=== PATIENT | female | born 1935 | race Asian ===

== ENCOUNTER 2016-06-07 08:07 | Inpatient (IN) | payer OTHER, MEDICAID ==
[2016-06-07] MEDS ORDERED: NS 1,000 ML IV ONE (08:32)
[2016-06-07 08:42] LABS: COLOR PALE YELLOW; LEUKOCYTE ESTERASE,URINE TRACE (NEGATIVE); NITRITE,URINE NEGATIVE (NEGATIVE)
--- NOTE | 2016-06-07 08:46 | CPEKG ---
Heart Rate: 86 RR Interval: 698 P-R Interval: 168 QRSD Interval: 74 QT Interval: 368 QTC Interval: 440 P Dudley: 31 QRS Dudley: 27 T Wave Dudley: -3 EKG Severity - ABNORMAL ECG - EKG Impression: SINUS RHYTHM EKG Impression: PROBABLE POSTERIOR INFARCT EKG Impression: BORDERLINE T ABNORMALITIES, INFERIOR LEADS Electronically Signed By: Alexandra Abebe 07-Jun-2016 15:18:17
[2016-06-07 08:50] LABS: ABSOLUTE IMMATURE GRANULOCYTES 0.08 10^3/uL (0.00-0.10); ADD DIFF? NO; ADD MORPH? NO; ADD SCAN? NO; ATYPICAL LYMPHOCYTE FLAG 10 (0-99); FRAGMENT RBC FLAG 0 (0-99); HEMATOCRIT 40.4 % (38.0-47.0); HEMOGLOBIN 13.8 g/dL (12.6-16.3); LEFT SHIFT FLG 10 (0-99); LIPEMIA HEMOLYSIS FLAG 90 (0-99); MEAN CELL HEMOGLOBIN 30.9 pg (27.9-34.1); MEAN CELL HEMOGLOBIN CONCENTR. 34.2 g/dL (32.4-36.7); MEAN CELL VOLUME 90.4 fL (81.5-99.8); MEAN PLATELET VOLUME 9.6 fL (8.7-11.7); PLATELET CLUMPS FLAG 0 (0-99); PLATELET COUNT 159 10^3/uL (150-400); RED BLOOD CELL COUNT 4.47 10^6/uL (4.18-5.33); RED CELL DISTRIBUTION WIDTH 11.8 % (11.5-15.2)
[2016-06-07 09:05] LABS: ANION GAP 14 mEq/L (8-16); CALCIUM 9.6 mg/dL (8.5-10.4); CARBON DIOXIDE 21 mEq/l (22-31); CHLORIDE 105 mEq/L (97-110); CREATININE 0.9 mg/dL (0.6-1.0); GLOMERULAR FILTRATION RATE > 60; GLUCOSE 125 mg/dL (70-100); POTASSIUM 4.1 mEq/L (3.5-5.2); SODIUM 140 mEq/L (134-144)
--- NOTE | 2016-06-07 09:19 | EDPHY ---
H & P Stated Complaint: body aches, h/a, vomit, cough since yesterday Time Seen by Provider: 06/07/16 08:45 HPI/ROS: CHIEF COMPLAINT: Myalgias, URI symptoms. HISTORY OF PRESENT ILLNESS: The patient is a Tibetan-speaking 80 y/o female arriving with her son complaining of cough and myalgias onset yesterday morning. She complains of associated cough, "sinus" headache, rhinorrhea, and sore throat. She has used Theraflu and Tylenol with minimal symptom improvement. She had 3 episodes of vomiting through the night. Her son reports she also seems somewhat confused as she did not remember calling him this morning. She denies fever, abdominal pain, shortness of breath, or diarrhea. She did receive a flu vaccination this year and is normally healthy. Her son translated for me. REVIEW OF SYSTEMS: Constitutional: No fever, no chills Eyes: No visual changes ENT: see HPI Respiratory: see HPI Cardiac: No chest pain Gastrointestinal: see HPI Genitourinary: No hematuria, no dysuria Musculoskeletal: No leg pain or swelling Skin: No rash Neurological: See HPI Psychiatric: No depression Source: Patient, Family - Personal History Current Tetanus/Diphtheria Vaccine: Unsure Current Tetanus Diphtheria and Acellular Pertussis (TDAP): Unsure - Medical/Surgical History PMH: PMH includes: 1. Hearing aid 2. "achy joints" 3. GERD PCP: Dr. Rosendo Early Asthma: No Hx Chronic Respiratory Disease: No Hx Diabetes: No Hx Cardiac Disease: No Hx Renal Disease: No Hx Cirrhosis: No Hx Alcoholism: No Hx HIV/AIDS: No Hx Splenectomy or Spleen Trauma: No Other PMH: EYE LID SURGERY, CATARACT SURGERY. generally healthy - Social History Smoking Status: Never smoked Additional Social History: Speaks Tibetan. Lives with son and daughter. - Physical Exam Exam: General Appearance: Alert, no distress, non-toxic appearing Eyes: Pupils equal and round, no conjunctival pallor or injection ENT, Mouth: Mucous membranes moist. No pharyngeal erythema. Neck: Normal inspection Respiratory: Lungs are clear to auscultation Cardiovascular: Regular rate and rhythm Gastrointestinal: Abdomen is soft and non- tender Neurological: A&O, nonfocal, normal gait Skin: Warm and dry, no rash Extremities: Nontender, no pedal edema Psychiatric: Mood and affect normal Constitutional: Initial Vital Signs Temperature (C) 36.7 C 06/07/16 08:15 Heart Rate 97 06/07/16 08:15 Respiratory Rate 16 06/07/16 08:15 Blood Pressure 162/96 H 06/07/16 08:15 O2 Sat (%) 98 06/07/16 08:15 O2 Delivery Mode Nasal Cannula O2 (L/minute) 2 Allergies/Adverse Reactions: No Known Allergies Allergy (Unverified 04/30/13 01:51) Home Medications: Medication Instructions Recorded Acetaminophen [Tylenol 325mg (*)] 650 mg PO Q6 PRN 06/07/16 Calcium [HI-VALERIA] 500 mg PO DAILY 06/07/16 Omeprazole 20 mg PO DAILY 06/07/16 Ondansetron Odt [Zofran Odt 4 mg 4 mg PO Q4 PRN #6 tab 06/07/16 (*)] levOFLOXACIN [levAQUIN (RX)] 750 mg PO DAILY #9 tab 06/07/16 Medical Decision Making ED Course/Re-evaluation: This is a normally healthy Tibetan 80 y/o female who presents today with myalgias and general URI symptoms onset yesterday and vomiting early this morning. OTC medications have not improved her symptoms. On exam, she is well- appearing without evidence of dehydration, has no pharyngeal erythema, and her breath sounds are clear. IV established. Labs drawn including CBC, CHEM. UA ordered. 4mg IV Zofran and 1L IV NS administered. Flu swab ordered. Will attempt a PO challenge as she is currently not nauseated. 650mg PO Tylenol administered for pain. Plan for chest x-ray to rule out infiltrate. Patient placed on surveillance system monitor. The 12 lead EKG was interpreted by myself. EKG shows sinus rhythm rate 86 with borderline T abnormalities in inferior leads. See hard copy and/or "tracemaster " electronic copy for interpretation. Study: Chest x-ray Indication: Cough Results: Chest x-ray was obtained. The results of the study are: Indistinct opacity overlying the anterior aspect of the lower thoracic spine, which could be related to pneumonia or mass. Recommend radiographic follow-up to resolution. The study was read by Dr. Giles. I viewed the images myself on the PACS system. 0950: Reassessed patient and discussed work up. Her EKG is unremarkable as is her blood work. Her urine indicates a possible UTI (vs contamination), though she has no urinary symptoms; her urine has been sent for culture. Her chest x- ray shows a retrocardiac infiltrate c/w pneumonia. She will be discharged on Levaquin with her first dose here to treat possible pneumonia as well as a possible UTI and given a script for Zofran to use PRN. I've recommended following up with her PCP on Thursday. Her son translated this interaction for me and I answered all the patient's questions. Return precautions given. 1055: As RN was discharging patient, her SpO2 dropped to 87% while standing. She will need to be admitted for pneumonia and hypoxemia instead of discharge home. Bld cx's drawn, lactate normal. Discussed case with hospitalist service. Dr. Amaya accepts admission. Differential Diagnosis: Differential diagnosis includes UTI, pyelonephritis, cholecystitis, influenza, cellulitis, pneumonia. - Data Points Laboratory Results: Laboratory Results 06/07/16 08:38 06/07/16 08:38 06/07/16 06/07/16 06/07/16 08:38 08:38 08:38 WBC 7.95 10^3/uL 10^3/uL (3.80-9.50) RBC 4.47 10^6/uL 10^6/uL (4.18-5.33) Hgb 13.8 g/dL g/dL (12.6-16.3) Hct 40.4 % % (38.0-47.0) MCV 90.4 fL fL (81.5-99.8) MCH 30.9 pg pg (27.9-34.1) MCHC 34.2 g/dL g/dL (32.4-36.7) RDW 11.8 % % (11.5-15.2) Plt Count 159 10^3/uL 10^3/uL (150-400) MPV 9.6 fL fL (8.7-11.7) Neut % (Auto) 76.1 % H % (39.3-74.2) Lymph % (Auto) 12.2 % L % (15.0-45.0) [place] % (Auto) 9.1 % % (4.5-13.0) Eos % (Auto) 1.0 % % (0.6-7.6) Baso % (Auto) 0.6 % % (0.3-1.7) Nucleat RBC Rel Count 0.0 % % (0.0-0.2) Absolute Neuts (auto) 6.05 10^3/uL 10^3/uL (1.70-6.50) Absolute Lymphs (auto) 0.97 10^3/uL L 10^3/uL (1.00-3.00) Absolute Monos (auto) 0.72 10^3/uL 10^3/uL (0.30-0.80) Absolute Eos (auto) 0.08 10^3/uL 10^3/uL (0.03-0.40) Absolute Basos (auto) 0.05 10^3/uL 10^3/uL (0.02-0.10) Absolute Nucleated RBC 0.00 10^3/uL 10^3/uL (0-0.01) Immature Gran % 1.0 % % (0.0-1.1) Immature Gran # 0.08 10^3/uL 10^3/uL (0.00-0.10) Sodium 140 mEq/L mEq/L (134-144) Potassium 4.1 mEq/L mEq/L (3.5-5.2) Chloride 105 mEq/L mEq/L (97-110) Carbon Dioxide 21 mEq/l L mEq/l (22-31) Anion Gap 14 mEq/L mEq/L (8-16) BUN 14 mg/dL mg/dL (7-23) Creatinine 0.9 mg/dL mg/dL (0.6-1.0) Estimated GFR > 60 Glucose 125 mg/dL H mg/dL (70-100) Calcium 9.6 mg/dL mg/dL (8.5-10.4) Urine Color Urine Appearance Urine pH Ur Specific [place] Urine Protein Urine Ketones Urine Blood Urine Nitrate Urine Bilirubin Urine Urobilinogen Ur Leukocyte Esterase Urine RBC Urine WBC Ur Epithelial Cells Ur Culture Indicated? Urine Glucose Influenza Typ A,B (DFA) NEGATIVE FOR FLU (NEGATIVE) 06/07/16 08:29 WBC RBC Hgb Hct MCV MCH MCHC RDW Plt Count MPV Neut % (Auto) Lymph % (Auto) [place] % (Auto) Eos % (Auto) Baso % (Auto) Nucleat RBC Rel Count Absolute Neuts (auto) Absolute Lymphs (auto) Absolute Monos (auto) Absolute Eos (auto) Absolute Basos (auto) Absolute Nucleated RBC Immature Gran % Immature Gran # Sodium Potassium Chloride Carbon Dioxide Anion Gap BUN Creatinine Estimated GFR Glucose Calcium Urine Color PALE YELLOW Urine Appearance CLEAR Urine pH 7.0 (5.0-7.5) Ur Specific [place] 1.011 (1.002-1.030) Urine Protein NEGATIVE (NEGATIVE) Urine Ketones NEGATIVE (NEGATIVE) Urine Blood 2+ H (NEGATIVE) Urine Nitrate NEGATIVE (NEGATIVE) Urine Bilirubin NEGATIVE (NEGATIVE) Urine Urobilinogen NEGATIVE EU EU (0.2-1.0) Ur Leukocyte Esterase TRACE H (NEGATIVE) Urine RBC 5-10 /hpf H /hpf (0-3) Urine WBC 3-5 /hpf H /hpf (0-3) Ur Epithelial Cells TRACE /lpf /lpf (NONE-1+) Ur Culture Indicated? INDICATED H (NI) Urine Glucose NEGATIVE (NEGATIVE) Influenza Typ A,B (DFA) Medications Given: Discontinued Medications Acetaminophen (Tylenol) 650 mg PO EDNOW ONE Stop: 06/07/16 09:21 Last Admin: 06/07/16 09:41 Dose: 650 mg Sodium Chloride (Ns) 1,000 mls @ 0 mls/hr IV ONCE ONE PRN Reason: Wide Open Stop: 06/07/16 08:33 Last Admin: 06/07/16 08:40 Dose: 1,000 mls Levofloxacin (Levaquin) 750 mg PO EDNOW ONE PRN Reason: Protocol Stop: 06/07/16 09:51 Last Admin: 06/07/16 09:59 Dose: 750 mg Ondansetron HCl (Zofran) 4 mg IVP EDNOW ONE Stop: 06/07/16 09:21 Last Admin: 06/07/16 09:41 Dose: 4 mg Departure - Departure Disposition: [facility] Acute Clinical Impression: Hypoxemia Pneumonia Qualifiers: Pneumonia type: due to unspecified organism Laterality: right Lung location: unspecified part of lung Qualified Code(s): J18.9 - Pneumonia, unspecified organism Condition: Good Report Scribed for: Alexandra Abebe Report Scribed by: Laurie Patterson Date of Report: 06/07/16 Time of Report: 09:19 Physician Review and Approval Statement: 06/07/16 09:19 Portions of this note were transcribed by a medical intern. I personally performed a history, physical exam, medical decision making, and confirmed accuracy of information the transcribed note.
[2016-06-07] MEDS ORDERED: ACETAMINOPHEN 325 MG TAB PO ONE (09:20)
[2016-06-07] MEDS ORDERED: ONDANSETRON 4 MG/2 ML VIAL IVP ONE (09:20)
[2016-06-07] MEDS ORDERED: ONDANSETRON 4 MG/2 ML VIAL IVP PRN (11:26)
--- NOTE | 2016-06-07 11:52 | GHP ---
DATE OF ADMISSION: 06/07/2016 CHIEF COMPLAINT: Cough. HISTORY OF PRESENT ILLNESS: This is a 80-year-old, Tibetan-speaking female accompanied by her son, who is translating, who presents with 1 day of respiratory symptoms. This includes myalgias, nonpro ductive cough, some chills at home without fevers. She also has some pain in her bilateral temples. She had some right-sided rib pain that she can reproduce by pressing it. This was not pleuritic. She notes that she had some pain in her left calf a few weeks ago, which resolved. There was no sw elling there. She took Tylenol and TheraFlu without improvement, thus she presented to the Emergenc y Department. In the Emergency Department, she was initially going to be discharged, however she de satted to 87% on room air, was thus admitted. PAST MEDICAL/SURGICAL HISTORY: 1. GERD. 2. Osteoarthritis. MEDICATIONS: Omeprazole, calcium, Tylenol p.r.n. ALLERGIES: None. FAMILY HISTORY: No lung disease. SOCIAL HISTORY: She splits her time between her son and her daughter's house. She is Tibetan speak ing. REVIEW OF SYSTEMS: A 10-point review of systems is conducted, and is negative except per HPI. PHYSICAL EXAM: VITAL SIGNS: Blood pressure 157/78, heart rate 89, respiration rate 16, saturating initially 98% on room air, as low as 87% on room air, temperature is 36.7. GENERAL: The patient is a pleasant female, lying in bed, comfortable, in no acute distress. HEENT: Mucous membranes to be moist. She has mild right-sided maxillary sinus tenderness to palpation. CARDIOVASCULAR: Regular rate and rhythm. No murmurs, rubs, or gallops. PULMONARY: In no respiratory distress. She is br eathing comfortably. She is clear to auscultation bilaterally. ABDOMEN: Soft, nontender, nondiste nded. SKIN: No rash. : No Xiong. NEUROLOGIC: Alert and oriented x3. She is moving all extre mities. PSYCHIATRIC: Normal mood and affect. EXTREMITIES: Trace bilateral lower extremity pittin g edema, which is symmetric. LABS: CBC is normal. Basic metabolic panel shows a bicarbonate of 21, is otherwise normal. Urinal ysis shows 3-5 white, 2+ blood. Influenza is negative. DATA: 1. I personally viewed and interpreted her chest x-ray. This shows infiltrate, which can be seen o n the lateral chest x-ray. 2. I discussed this with Dr. Abebe. We will admit to med/surg. 3. I personally viewed and interpreted her EKG. This shows sinus rhythm. She has T-wave inversion s in leads 3, V1. Flattening of her T-waves in lead V2. She has no olds to compare this to. IMPRESSION AND PLAN: This is a 80-year-old female with a suspected respiratory infection. 1. Suspected respiratory infection: She does have an infiltrate on her x-ray, though she does not have a significant white count. I think it is reasonable to treat her for community-acquired pneumo chemo given this. However, bronchitis would be a consideration as well. We will need to have followu p chest x-rays to assure resolution of this, would also consider mass. I do not think she has a pul monary embolus, as her right-sided chest pain is very reproducible by palpation. She is not signifi cantly hypoxic. She had blood cultures drawn after antibiotics given, as the initial plan was to di scharge her home. Plan a trial of antibiotics, follow clinical improvement. Follow up chest x-ray in about a month to assure resolution of the infiltrate. 2. Gastroesophageal reflux disease: Continue omeprazole. 3. Osteoarthritis: Continue Tylenol. 4. Code status: She would like to be full code, full tube. She has no decision maker brian, celina farris her son and daughter are both involved in her care. 5. Venous thromboembolism risk: She is moderate to high risk. I will give her low-dose Lovenox. 6. Disposition: We will make her observation. If she improves tomorrow, she may be able to be dis charged. /[id number]/MODL
[2016-06-07 12:38] LABS: INR 1.03 (0.83-1.16); PROTIME(PATIENT) 13.4 SEC (12.0-15.0)
[2016-06-07 12:39] LABS: APTT 26.3 SEC (23.0-38.0)
[2016-06-07 12:48] LABS: BILIRUBIN,TOTAL 0.8 mg/dL (0.1-1.4)
[2016-06-07] MEDS: oxyCODONE IR 5 MG TAB PO PRN ×3 (13:48→22:09)
[2016-06-07] MEDS: ONDANSETRON DISINTEGRATING 4 MG TAB PO PRN ×2 (18:00→22:19)
[2016-06-08] MEDS: oxyCODONE IR 5 MG TAB PO PRN (05:13)
[2016-06-08] MEDS: ONDANSETRON DISINTEGRATING 4 MG TAB PO PRN ×2 (05:13→09:18)
[2016-06-08 05:20] LABS: % IMMATURE GRANULYOCYTES 0.6 % (0.0-1.1); ABSOLUTE IMMATURE GRANULOCYTES 0.04 10^3/uL (0.00-0.10); ADD DIFF? NO; ADD MORPH? NO; ADD SCAN? NO; ATYPICAL LYMPHOCYTE FLAG 0 (0-99); FRAGMENT RBC FLAG 0 (0-99); HEMATOCRIT 37.8 % (38.0-47.0); HEMOGLOBIN 13.3 g/dL (12.6-16.3); LEFT SHIFT FLG 0 (0-99); LIPEMIA HEMOLYSIS FLAG 90 (0-99); MEAN CELL HEMOGLOBIN 31.1 pg (27.9-34.1); MEAN CELL HEMOGLOBIN CONCENTR. 35.2 g/dL (32.4-36.7); MEAN CELL VOLUME 88.5 fL (81.5-99.8); MEAN PLATELET VOLUME 9.2 fL (8.7-11.7); PLATELET CLUMPS FLAG 10 (0-99); PLATELET COUNT 139 10^3/uL (150-400); RED BLOOD CELL COUNT 4.27 10^6/uL (4.18-5.33); RED CELL DISTRIBUTION WIDTH 11.9 % (11.5-15.2)
[2016-06-08 05:36] LABS: ANION GAP 11 mEq/L (8-16); CALCIUM 9.2 mg/dL (8.5-10.4); CARBON DIOXIDE 22 mEq/l (22-31); CHLORIDE 97 mEq/L (97-110); CREATININE 0.7 mg/dL (0.6-1.0); GLOMERULAR FILTRATION RATE > 60; GLUCOSE 110 mg/dL (70-100); SODIUM 130 mEq/L (134-144)
[2016-06-08] MEDS: ENOXAPARIN 40 MG/0.4 ML SYR SC SCH (09:18)
[2016-06-08] MEDS: CALCIUM CARBONATE 500 MG TAB PO SCH (09:18)
[2016-06-08] MEDS: PANTOPRAZOLE SODIUM 40 MG TAB PO SCH (09:18)
[2016-06-08] MEDS ORDERED: NS 1,000 ML IV ONE (12:21)
[2016-06-08] MEDS ORDERED: MECLIZINE HCL 25 MG TAB PO PRN (12:21)
--- NOTE | 2016-06-08 13:14 | HOSPPROG ---
Hospitalist Progress Note Assessment/Plan: # vertigo: Trial of meclizine # pneumonia: Continue Levaquin - needs follow-up imaging to ensure resolution and exclude mass # hyponatremia: Most consistent with SIADH vs hypovolemia - normal saline 1 L x1 # FCFT # lovenox ## Dispo: Inpatient; needs greater than 2 midnights for treatment of the above Moderate risk Subjective: Nausea vomiting today; feels dizzy Objective: Vital Signs Temp Pulse Resp BP Pulse Ox 36.9 C 75 20 126/86 H 96 06/08/16 11:42 06/08/16 11:42 06/08/16 11:42 06/08/16 11:42 06/08/16 11:42 Laboratory Results 06/08/16 04:52 06/08/16 04:52 06/07/16 06/08/16 06/09/16 05:59 05:59 05:59 Intake Total 1500 450 Output Total 500 300 Balance 1000 150 PT 13.4 SEC (12.0-15.0) 06/07/16 12:20 INR 1.03 (0.83-1.16) 06/07/16 12:20 Vitals reviewed Pleasant, uncomfortable, throwing up Regular rate and rhythm, no murmurs rubs or gallops No respiratory distress, lungs clear to auscultation bilaterally, no wheezes or rales Abdomen soft nontender, nondistended, no hepatosplenomegaly ICD10 Worksheet Patient Problems: Problems Problem Status Onset Pneumonia Acute Hypoxemia Acute
[2016-06-08] MEDS: ACETAMINOPHEN 325 MG TAB PO PRN (16:55)
[2016-06-09] MEDS: ACETAMINOPHEN 325 MG TAB PO PRN (04:31)
[2016-06-09 05:54] LABS: ANION GAP 11 mEq/L (8-16); CALCIUM 8.9 mg/dL (8.5-10.4); CARBON DIOXIDE 24 mEq/l (22-31); CHLORIDE 101 mEq/L (97-110); CREATININE 1.1 mg/dL (0.6-1.0); GLOMERULAR FILTRATION RATE 48; GLUCOSE 94 mg/dL (70-100); POTASSIUM 4.4 mEq/L (3.5-5.2); SODIUM 136 mEq/L (134-144)
[2016-06-09] MEDS ORDERED: NS 1,000 ML IV ONE (06:17)
[2016-06-09] MEDS: PANTOPRAZOLE SODIUM 40 MG TAB PO SCH (09:00)
[2016-06-09] MEDS: ENOXAPARIN 40 MG/0.4 ML SYR SC SCH (09:00)
[2016-06-09] MEDS: CALCIUM CARBONATE 500 MG TAB PO SCH (09:00)
[2016-06-09 11:14] LABS: ANION GAP 8 mEq/L (8-16); CALCIUM 8.8 mg/dL (8.5-10.4); CARBON DIOXIDE 23 mEq/l (22-31); CHLORIDE 103 mEq/L (97-110); CREATININE 1.2 mg/dL (0.6-1.0); GLOMERULAR FILTRATION RATE 43; GLUCOSE 94 mg/dL (70-100); POTASSIUM 3.9 mEq/L (3.5-5.2); SODIUM 134 mEq/L (134-144)
--- NOTE | 2016-06-09 13:41 | HOSPPROG ---
Hospitalist Progress Note Assessment/Plan: # vertigo: resolved, eating better today but still only soup # pneumonia: Continue Levaquin - needs follow-up imaging to ensure resolution and exclude mass - recheck CXR tomorrow # wheezing/RAD - prednisone # hypoxia - d/t above; still desats on RA - old clinic notes reviewed, no hypoxia as outpatient # hyponatremia: resolved # mild worsening of renal function - hydrate well today, recheck tomorrow # FCFT # lovenox ## Subjective: less dizzy, eating small amounts of food Objective: Vital Signs Temp Pulse Resp BP Pulse Ox 36.5 C 63 18 91/53 L 96 06/09/16 12:00 06/09/16 12:00 06/09/16 12:00 06/09/16 12:00 06/09/16 12:00 Laboratory Results 06/09/16 10:40 06/08/16 06/09/16 06/10/16 05:59 05:59 05:59 Intake Total 1850 Output Total 600 Balance 1250 PT 13.4 SEC (12.0-15.0) 06/07/16 12:20 INR 1.03 (0.83-1.16) 06/07/16 12:20 - Physical Exam Constitutional: no apparent distress, appears nourished Cardiovascular: regular rate and rhythym, no murmur, rub, or gallop Respiratory: no respiratory distress, no rales or rhonchi, expiratory wheeze, No reduced air movement Gastrointestinal: normoactive bowel sounds, soft, non-tender abdomen, no palpable masses ICD10 Worksheet Patient Problems: Problems Problem Status Onset Pneumonia Acute Hypoxemia Acute
[2016-06-09] MEDS: predniSONE 20 MG TAB PO SCH (14:48)
[2016-06-10 05:15] LABS: ANION GAP 9 mEq/L (8-16); CALCIUM 9.1 mg/dL (8.5-10.4); CARBON DIOXIDE 23 mEq/l (22-31); CHLORIDE 108 mEq/L (97-110); CREATININE 0.9 mg/dL (0.6-1.0); GLOMERULAR FILTRATION RATE > 60; GLUCOSE 120 mg/dL (70-100); POTASSIUM 4.3 mEq/L (3.5-5.2); SODIUM 140 mEq/L (134-144)
[2016-06-10] MEDS: PANTOPRAZOLE SODIUM 40 MG TAB PO SCH (08:34)
[2016-06-10] MEDS: CALCIUM CARBONATE 500 MG TAB PO SCH (08:34)
[2016-06-10] MEDS: predniSONE 20 MG TAB PO SCH (08:35)
[2016-06-10] MEDS: ENOXAPARIN 40 MG/0.4 ML SYR SC SCH (08:35)
--- NOTE | 2016-06-10 14:34 | HOSPPROG ---
Hospitalist Progress Note Assessment/Plan: # vertigo: resolved, eating better today but still only soup # pneumonia: Continue Levaquin - needs follow-up imaging to ensure resolution and exclude mass - recheck CXR tomorrow # wheezing/RAD - prednisone # hypoxia - suspect due to reactive airways disease - will check CT angiogram and echocardiogram # hyponatremia: resolved # FCFT # lovenox ## mod risk Subjective: Still quite dyspneic today Objective: Vital Signs Temp Pulse Resp BP Pulse Ox 36.7 C 56 L 18 101/59 L 96 06/10/16 07:29 06/10/16 07:29 06/10/16 07:29 06/10/16 07:29 06/10/16 07:29 Laboratory Results 06/10/16 04:40 06/09/16 06/10/16 06/11/16 05:59 05:59 05:59 Intake Total 1850 1150 640 Output Total 600 Balance 1250 1150 640 PT 13.4 SEC (12.0-15.0) 06/07/16 12:20 INR 1.03 (0.83-1.16) 06/07/16 12:20 Vitals reviewed Pleasant, no acute distress Regular rate and rhythm, no murmurs rubs or gallops No respiratory distress, lungs clear to auscultation bilaterally, no rales; diffuse expiratory wheezes Abdomen soft nontender, nondistended, no hepatosplenomegaly ICD10 Worksheet Patient Problems: Problems Problem Status Onset Chronic Disease Mgmt Acute Pneumonia Acute Hypoxemia Acute
[2016-06-10] MEDS: guaiFENesin 600 MG TAB.ER PO SCH ×2 (15:51→22:42)
[2016-06-10] MEDS ORDERED: IOPAMIDOL (ISOVUE-370) 150 ML BTL IV ONE (16:30)
--- NOTE | 2016-06-10 17:22 | ECHO ---
[id number] + + [address] : : [place] [address] : : [phone] + Adult Echocardiographic Report + --+ :Name: Niranjan HUMPHREYSrayoelisabeth Date: 06/10/2016 02:41 PM : : Hospital Admission Number: [id number] Location: 3 70: :: 1935 Gender: Female Height: 67 in : :Age: 80 yrs Race: Weight: 169 lb : :Reason For Study: Hypoxia : : BSA: 1.9 meters2 : + --+ MMode/2D Measurements \T\ Calculations IVSd: 0.53 cm LVIDd: 4.3 cm FS: 48.7 % Ao root diam: LVPWd: 0.77 cm LVIDs: 2.2 cm EDV(Teich): 3.6 cm 84.6 ml LA dimension: ESV(Teich): 4.1 cm 16.6 ml EF(Teich): 80.3 % LVLd ap4: 8.0 cm SV(MOD-sp4): EDV(MOD-sp4): 28.0 ml 36.0 ml LVLs ap4: 5.7 cm ESV(MOD-sp4): 8.0 ml EF(MOD-sp4): 77.8 % Normal Measurement Values: + + :LVIDd (3.5-5.7cm) IVSd (0.6-1.1cm) LVPWd (0.6-1.1cm) Aortic Root (2.0-3.7cm)Left Atrium (1.5-4.0cm): :LV Vol(d) (76-115ml) LV Vol(s) (29-48ml) Ejec Fraction (50-65%)PV Rui (0.6- 1.2m/s) TV Rui (0.4-1.0m/s) : :MV E Rui (0.8-1.0m/s)MV A Rui (0.3-1.0m/s)LVOT Rui (0.7-1.2m/s) Asc Ao Rui ( 0.9-1.8m/s) : + + Doppler Measurements \T\ Calculations MV E max rui: 71.1 cm/sec Ao mean P.4 mmHg MV A max rui: 110.1 cm/sec Ao V2 mean: 87.4 cm/sec MV E/A: 0.65 Ao V2 VTI: 26.8 cm MV dec time: 0.34 sec Left Ventricle The left ventricular cavity is small. There is normal left ventricular wall thickness. Left ventricular systolic function is normal. Ejection Fraction = 70-75%. No regional wall motion abnormalities noted. Right Ventricle The right ventricle is mildly dilated. The right ventricular systolic function is mildly reduced. Atria The left atrial size is normal. The right atrium is mildly dilated. The interatrial septum is intact with no evidence for an atrial septal defect. Mitral Valve The mitral valve is normal in structure and function. There is no evidence of mitral valve prolapse. There is no mitral valve stenosis. There is trace to mild mitral regurgitation. Tricuspid Valve Normal tricuspid valve. There is trace tricuspid regurgitation. Unable to estimate PA systolic pressure. Aortic Valve The aortic valve is trileaflet. The aortic valve opens well. There is no aortic stenosis. There is no aortic insufficiency. Pulmonic Valve The pulmonic valve is normal in structure and function. There is no pulmonic valvular regurgitation. Great Vessels The aortic root is normal size. Pericardium/Pleural There is no pericardial effusion. Conclusion A complete two-dimensional transthoracic echocardiogram was performed (2D, M-mode, Doppler and color flow Doppler). Left ventricular systolic function is normal. Ejection Fraction = 70-75%. The right ventricle is mildly dilated with mildly reduced systolic function The right atrium is mildly dilated. The left ventricular cavity is small. There is trace to mild mitral regurgitation. There is trace tricuspid regurgitation. Unable to estimate PA systolic pressure No prior echo Final Reading Physician: Dr Renetta Summers electronically signed on 06/10/2016 05:20 PM Ordering Physician: Elie Amaya Performed By: Genia Moon RDCS
[2016-06-11 06:33] LABS: ANION GAP 9 mEq/L (8-16); CALCIUM 9.1 mg/dL (8.5-10.4); CARBON DIOXIDE 22 mEq/l (22-31); CHLORIDE 107 mEq/L (97-110); CREATININE 0.9 mg/dL (0.6-1.0); GLOMERULAR FILTRATION RATE > 60; GLUCOSE 88 mg/dL (70-100); POTASSIUM 3.9 mEq/L (3.5-5.2); SODIUM 138 mEq/L (134-144)
[2016-06-11 08:08] VITALS: BP 114/80; PULSE 68; RESP 12; TEMP 97.3; O2SAT 92
[2016-06-11] MEDS: predniSONE 20 MG TAB PO SCH (08:14)
[2016-06-11] MEDS: CALCIUM CARBONATE 500 MG TAB PO SCH (08:14)
[2016-06-11] MEDS: guaiFENesin 600 MG TAB.ER PO SCH (08:14)
[2016-06-11] MEDS: ENOXAPARIN 40 MG/0.4 ML SYR SC SCH (08:14)
[2016-06-11] MEDS: PANTOPRAZOLE SODIUM 40 MG TAB PO SCH (08:14)
--- NOTE | 2016-06-11 15:12 | GDS ---
FINAL DIAGNOSES: 1. Bronchitis. 2. Reactive airways disease with exacerbation. 3. Hypoxia. 4. Vertigo. 5. Hyponatremia. 6. 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 HOSPITAL COURSE: A 80-year-old female who presented with a lower respiratory infection, initially t hought to be pneumonia, though this was not seen on subsequent CT scan. She was treated with antibio tics. She will receive a total of 7 days of Levaquin. Course was also complicated by hypoxia and whe ezing, this likely represents reactive airways disease. Given her prolonged hypoxia, a CT angiogram was performed which was negative for PE. Echocardiogram was also performed, which was relatively unr emarkable. A CT angio did reveal a 4.1 cm ascending aortic aneurysm. I have given her a referral to see Dr. Dorsey to follow this up. I do not think any symptoms that she has currently are attributable to this. She does have some prolonged nocturnal hypoxia. I have discussed with the family, and they would lik e to have oxygen. I have given them a prescription for this. They will also purchase a home pulse ox . BILLING: I spent more than 30 minutes on the day of discharge coordinating care. /[id number]/MODL
== END 2016-06-11 15:41 | disposition home or self-care (01) | DRG 202 ==
LOC: INTOOBSV 11:00 → F3E 11:34 → OBSVTOIN 06-08 13:14
PROVIDERS: ADMIT Student in an Organized Health Care Education/Training Program; ATTEND Student in an Organized Health Care Education/Training Program
DX: J40 Bronchitis, not specified as acute or chronic (principal); J45.901 Unspecified asthma with (acute) exacerbation; R42 Dizziness and giddiness; E87.1 Hypo-osmolality and hyponatremia; K21.9 Gastro-esophageal reflux disease without esophagitis; M19.90 Unspecified osteoarthritis, unspecified site; I71.4 Abdominal aortic aneurysm, without rupture
CPT/HCPCS: 96374; G0378; J1650; J1956; J2405; Q9967

== ENCOUNTER → 2016-06-16 | Outpatient (CLI) | payer OTHER, MEDICAID | LOC: CIMAGING 10:50 | PROVIDERS: ATTEND Internal Medicine | DX: R51 Headache (principal); M54.2 Cervicalgia | CPT/HCPCS: 72050-PO ==

== ENCOUNTER → 2016-11-17 | Outpatient (CLI) | payer OTHER, MEDICAID | LOC: CIMAGING 09:15 | PROVIDERS: ATTEND Internal Medicine | DX: R07.81 Pleurodynia (principal) | CPT/HCPCS: 71100-PO ==

== ENCOUNTER → 2016-11-28 | Outpatient (CLI) | payer OTHER, MEDICAID | LOC: FCPNEURO 20:00 | PROVIDERS: ATTEND Psychiatry & Neurology Sleep Medicine | DX: G47.33 Obstructive sleep apnea (adult) (pediatric) (principal); G47.61 Periodic limb movement disorder ==

== ENCOUNTER → 2017-06-15 | Outpatient (CLI) | payer OTHER, MEDICAID | LOC: FIMAGING 11:14 | PROVIDERS: ATTEND Thoracic Surgery (Cardiothoracic Vascular Surgery) | DX: I71.2 Thoracic aortic aneurysm, without rupture (principal); K80.20 Calculus of gallbladder without cholecystitis without obstruction ==

== ENCOUNTER → 2018-09-08 | Outpatient (CLI) | payer OTHER, MEDICAID | LOC: BHCLAF 10:45 | PROVIDERS: ATTEND Internal Medicine Interventional Cardiology | DX: I71.9 Aortic aneurysm of unspecified site, without rupture (principal) | CPT/HCPCS: 93306-PO ==